=== PATIENT | male | born 1980 | race Caucasian/White ===

== ENCOUNTER 2016-06-11 14:13 | Emergency (ER) | payer BC ==
[~2016-06-11] VITALS: Ht 167.6 cm; Wt 91.6 kg
[~2016-06-11 14:13] MED LIST: CIPR500T PO; METR500T PO; ONDA4TAB7 PO; OXYC-323 PO
--- NOTE | 2016-06-11 15:27 | PHYS DOC ---
Past Medical History Past Medical History: Hypertension Past Surgical History: Other Additional Past Surgical Histo: VASECTOMY Alcohol Use: Occasionally Drug Use: None Adult General Chief Complaint Chief Complaint: ABDOMINAL PAIN HPI HPI Patient is a 35 year old male who complains of left lower quadrant abdominal pain that started yesterday at about noon. It has been constant and about the same since it began. Some nausea, no vomiting. Bowel movements have been regular , this morning it was somewhat "gummy". No blood in the stool. Patient states he had the same thing about 6 months ago but this time the pain is less became he came in earlier. When he was seen 6 months ago states he was diagnosed with diverticulitis and prescribed antibiotics and pain pills, it went away in a few days and he hasn't had any problems since until yesterday. His brother has a history of diverticulitis and had a segment of his colon removed. Review the patient's chart from previous visit shows that he did have a CAT scan with a diagnosis of diverticulitis. PCP Dr. Charlie Espinosa Review of Systems Review of Systems Constitutional: Denies fever or chills [] Eyes: Denies change in visual acuity, redness, or eye pain [] HENT: Denies nasal congestion or sore throat [] Respiratory: Denies cough or shortness of breath [] Cardiovascular: Denies chest pain GI: As in history of present illness : Denies dysuria or hematuria [] Musculoskeletal: Denies back pain or joint pain [] Integument: Denies rash or skin lesions [] Neurologic: Denies headache, focal weakness or sensory changes [] Allergies Allergies Allergies Coded Allergies Type Severity Reaction Last Updated Verified No Known Drug Allergies 01/04/16 No Physical Exam Physical Exam Constitutional: Well developed, well nourished, no acute distress, non-toxic appearance. Alert, mentating normally. HENT: Normocephalic, atraumatic, bilateral external ears normal, nose normal. [ ] Eyes: conjunctiva normal, no discharge. [] Neck: Normal range of motion, no stridor. [] Cardiovascular:Heart rate regular rhythm, no murmur [] Lungs & Thorax: Bilateral breath sounds clear to auscultation [] Abdomen: Bowel sounds normal, soft, nondistended, no masses, no pulsatile masses. Mild to moderate tenderness to palpation in the left lower quadrant, no rebound or guarding, no tenderness elsewhere in the abdomen. Skin: Warm, dry, no erythema, no rash. [] Extremities: No tenderness, no cyanosis, no clubbing, ROM intact, no edema. [] Neurologic: Alert and oriented X 3, normal motor function, normal sensory function, no focal deficits noted. [] Current Patient Data Vital Signs Vital Signs Date Time Temp Pulse Resp B/P Pulse Ox O2 Delivery O2 Flow Rate FiO2 06/11/16 16:54 70 17 122/79 100 Room Air 06/11/16 14:25 98.4 98.4 Lab Values Laboratory Tests Test 06/11/16 14:30 White Blood Count 11.0x10^3/uL (4.0-11.0) Red Blood Count 5.91x10^6/uL (4.30-5.70) H Hemoglobin 16.7g/dL (13.0-17.5) Hematocrit 50.3% (39.0-53.0) Mean Corpuscular Volume 85fL (79-100) Mean Corpuscular Hemoglobin 28pg (25-35) Mean Corpuscular Hemoglobin Concent 33g/dL (31-37) Red Cell Distribution Width 14.1% (11.5-14.5) Platelet Count 286x10^3/uL (140-400) Neutrophils (%) (Auto) 67% (31-73) Lymphocytes (%) (Auto) 21% (24-48) L Monocytes (%) (Auto) 9% (0-9) Eosinophils (%) (Auto) 3% (0-3) Basophils (%) (Auto) 0% (0-3) Neutrophils # (Auto) 7.3x10^3uL (1.8-7.7) Lymphocytes # (Auto) 2.3x10^3/uL (1.0-4.8) Monocytes # (Auto) 1.0x10^3/uL (0.0-1.1) Eosinophils # (Auto) 0.3x10^3/uL (0.0-0.7) Basophils # (Auto) 0.0x10^3/uL (0.0-0.2) Sodium Level 142mmol/L (136-145) Potassium Level 3.8mmol/L (3.5-5.1) Chloride Level 104mmol/L (98-107) Carbon Dioxide Level 30mmol/L (21-32) Anion Gap 8 (6-14) Blood Urea Nitrogen 15mg/dL (8-26) Creatinine 0.9mg/dL (0.7-1.3) Estimated GFR (Cockcroft-Gault) 95.0 BUN/Creatinine Ratio 17 (6-20) Glucose Level 88mg/dL (70-99) Calcium Level 9.1mg/dL (8.5-10.1) Total Bilirubin 0.5mg/dL (0.2-1.0) Aspartate Amino Transferase (AST) 19U/L (15-37) Alanine Aminotransferase (ALT) 45U/L (16-63) Alkaline Phosphatase 90U/L (46-116) Total Protein 7.9g/dL (6.4-8.2) Albumin 4.0g/dL (3.4-5.0) Albumin/Globulin Ratio 1.0 (1.0-1.7) Lipase 180U/L (73-393) Laboratory Tests 06/11/16 14:30 Laboratory Tests 06/11/16 14:30 EKG EKG [] Radiology/Procedures Radiology/Procedures [] Course & Med Decision Making Course & Med Decision Making Pertinent Labs and Imaging studies reviewed. (See chart for details) Healthy 35-year-old male without other medical problems who presents with left lower quadrant pain similar to a previous visit where he was diagnosed with diverticulitis. The patient's abdomen is benign. I prefer to not re-CT scan him due to radiation exposure since this presentation seems to be pretty clear-cut, he is agreeable to that. We will check some labs. Patient is comfortable and nontoxic. Labs are unremarkable. I believe he would be safe to go home with oral antibiotics and he is agreeable to that plan. I gave them return precautions to return for fever, feeling worse, vomiting. [] Dragon Disclaimer Dragon Disclaimer This electronic medical record was generated, in whole or in part, using a voice recognition dictation system. Departure Departure Impression: Primary Impression: Diverticulitis Disposition: HOME, SELF-CARE Condition: STABLE Referrals: NO PCP (PCP) Patient Instructions: Diverticulitis, [id number] Additional Instructions: Eat small amounts of bland foods for the next 2 or 3 days to avoid stressing your GI system. Drink plenty of fluids. No driving or working while taking the pain medication, it is an opiate. If you take more than 2 or 3 doses, you will probably need a laxative. Scripts Metronidazole 250 Mg Tablet1 Tab PO TID #30 TAB For diverticulitis Prov:ATUL EDWARDS MD 06/11/16 Ciprofloxacin Hcl (Cipro)500 Mg Tablet1 Tab PO BID #20 TAB For diverticulitis Prov:ATUL EDWARDS MD 06/11/16 Oxycodone/Apap 5-325 (Percocet 5-325 Mg Tablet)1 Each Tablet1-2 Tab PO Q4-6HRS # 14 TAB As needed for pain Diverticulitis Prov:ATUL EDWARDS MD 06/11/16 ATUL EDWARDS MD Jun 11, 2016 15:27
[2016-06-11 15:29] LABS: BASO % 0 % (0-3); EOS % 3 % (0-3); HEMATOCRIT 50.3 % (39.0-53.0); HEMOGLOBIN 16.7 g/dL (13.0-17.5); LYMPH # 2.3 x10^3/uL (1.0-4.8); LYMPH % 21 % (24-48); MEAN CORPUSCULAR HEMOGLOBIN 28 pg (25-35); MEAN CORPUSCULAR HGB CONC 33 g/dL (31-37); MEAN CORPUSCULAR VOLUME 85 fL (79-100); MONO % 9 % (0-9); NEUT % 67 % (31-73); PLATELET COUNT 286 x10^3/uL (140-400); RED BLOOD COUNT 5.91 x10^6/uL (4.30-5.70); RED CELL DISTRIBUTION WIDTH 14.1 % (11.5-14.5)
[2016-06-11 15:40] LABS: CALCIUM 9.1 mg/dL (8.5-10.1); CREATININE 0.9 mg/dL (0.7-1.3); POTASSIUM 3.8 mmol/L (3.5-5.1)
[2016-06-11 15:46] LABS: TOTAL BILIRUBIN 0.5 mg/dL (0.2-1.0); TOTAL PROTEIN 7.9 g/dL (6.4-8.2)
[2016-06-11 16:54] VITALS: BP 122/79
[2016-06-11] MEDS ORDERED: CIPR500T94 PO (16:57)
[2016-06-11] MEDS ORDERED: METR250T3 PO (16:57)
[2016-06-11] MEDS ORDERED: OXYC-323 PO (16:57)
== END 2016-06-11 17:03 | disposition home or self-care (01) ==
LOC: ER 14:13
DX: K57.92 Diverticulitis of intestine, part unspecified, without perforation or abscess without bleeding (principal); I10 Essential (primary) hypertension; Z98.52 Vasectomy status
CPT/HCPCS: 36415; 80053; 83690; 85027; 99284

== ENCOUNTER 2018-08-30 08:44 | Emergency (ER) | payer BC, OTHER ==
[~2018-08-30] VITALS: Ht 167.6 cm; Wt 90.7 kg
[~2018-08-30 08:44] MED LIST changes: +CIPR500T94 PO; +METR-111 PO; -OXYC-323 PO; +OXYC1TAB15 PO
[2018-08-30 08:52] VITALS: BP 156/96
--- NOTE | 2018-08-30 08:54 | PHYS DOC ---
Past Medical History Past Medical History: Hypertension Past Surgical History: Other Additional Past Surgical Histo: VASECTOMY Alcohol Use: Occasionally Drug Use: None Adult General Chief Complaint Chief Complaint: Neck Pain HPI HPI Patient is a 37 year old [f__sex] who presents with [] Review of Systems Review of Systems Constitutional: Denies fever or chills [] Eyes: Denies change in visual acuity, redness, or eye pain [] HENT: Denies nasal congestion or sore throat [] Respiratory: Denies cough or shortness of breath [] Cardiovascular: No additional information not addressed in HPI [] GI: Denies abdominal pain, nausea, vomiting, bloody stools or diarrhea [] : Denies dysuria or hematuria [] Musculoskeletal: Denies back pain or joint pain [] Integument: Denies rash or skin lesions [] Neurologic: Denies headache, focal weakness or sensory changes [] Endocrine: Denies polyuria or polydipsia [] All other systems were reviewed and found to be within normal limits, except as documented in this note. Allergies Allergies Allergies Coded Allergies Type Severity Reaction Last Updated Verified No Known Drug Allergies 01/04/16 No Physical Exam Physical Exam Constitutional: Well developed, well nourished, no acute distress, non-toxic appearance. [] HENT: Normocephalic, atraumatic, bilateral external ears normal, oropharynx moist, no oral exudates, nose normal. [] Eyes: PERRLA, EOMI, conjunctiva normal, no discharge. [] Neck: Normal range of motion, no tenderness, supple, no stridor. [] Cardiovascular:Heart rate regular rhythm, no murmur [] Lungs & Thorax: Bilateral breath sounds clear to auscultation [] Abdomen: Bowel sounds normal, soft, no tenderness, no masses, no pulsatile masses. [] Skin: Warm, dry, no erythema, no rash. [] Back: No tenderness, no CVA tenderness. [] Extremities: No tenderness, no cyanosis, no clubbing, ROM intact, no edema. [] Neurologic: Alert and oriented X 3, normal motor function, normal sensory function, no focal deficits noted. [] Psychologic: Affect normal, judgement normal, mood normal. [] EKG EKG [] Radiology/Procedures Radiology/Procedures [] Course & Med Decision Making Course & Med Decision Making Pertinent Labs and Imaging studies reviewed. (See chart for details) [] Dragon Disclaimer Dragon Disclaimer This electronic medical record was generated, in whole or in part, using a voice recognition dictation system. Departure Departure Referrals: ANDRAE RODRIGUEZ MD (PCP) SCARLETT PIERCE MD August 30, 2018 08:54
[2018-08-30] MEDS ORDERED: DICL50TA4 PO (09:04)
[2018-08-30] MEDS ORDERED: HYDR-3164 PO (09:04)
[2018-08-30] MEDS ORDERED: METH4TAB2 PO (09:04)
[2018-08-30] MEDS ORDERED: CYCL10TA2 PO (09:04)
--- NOTE | 2018-08-30 09:04 | PHYS DOC ---
Past Medical History Past Medical History: Hypertension Past Surgical History: Other Additional Past Surgical Histo: VASECTOMY Alcohol Use: Occasionally Drug Use: None Adult General Chief Complaint Chief Complaint: Neck Pain HPI HPI Patient is a 37 year old male with history of hypertension who presents to the ED today complaining of a sharp constant 5 out of 10 right lateral neck pain that began this morning when he woke up. Patient denies any known injury. Patient states the pain is worse on rotating his neck to the right side. He believes he slept wrong. Patient denies anything specifically relieving the pain. Patient denies any chest pain or shortness of breath. Review of Systems Review of Systems Constitutional: Denies fever or chills [] Eyes: Denies change in visual acuity, redness, or eye pain [] HENT: Denies nasal congestion or sore throat [] Respiratory: Denies cough or shortness of breath [] Cardiovascular: No additional information not addressed in HPI [] GI: Denies abdominal pain, nausea, vomiting, bloody stools or diarrhea [] : Denies dysuria or hematuria [] Musculoskeletal: Reports right lateral neck pain Integument: Denies rash or skin lesions [] Neurologic: Denies headache, focal weakness or sensory changes [] All other systems were reviewed and found to be within normal limits, except as documented in this note. Allergies Allergies Allergies Coded Allergies Type Severity Reaction Last Updated Verified No Known Drug Allergies 01/04/16 No Physical Exam Physical Exam Constitutional: Well developed, well nourished, no acute distress, non-toxic appearance. [] HENT: Normocephalic, atraumatic, bilateral external ears normal, oropharynx moist, no oral exudates, nose normal. [] Eyes: PERRLA, EOMI, conjunctiva normal, no discharge. [] Neck: Diffuse paraspinal muscle tenderness the right lateral cervical spine, no midline cervical spine tenderness, limited range of motion to the right lateral cervical spine due to pain, supple, no stridor. [] Cardiovascular:Heart rate regular rhythm, no murmur [] Lungs & Thorax: Bilateral breath sounds clear to auscultation [] Abdomen: Bowel sounds normal, soft, no tenderness, no masses, no pulsatile masses. [] Skin: Warm, dry, no erythema, no rash. [] Back: No tenderness, no CVA tenderness. [] Extremities: No tenderness, no cyanosis, no clubbing, ROM intact, no edema. [] Neurologic: Alert and oriented X 3, normal motor function, normal sensory function, no focal deficits noted. [] Psychologic: Affect normal, judgement normal, mood normal. [] EKG EKG [] Radiology/Procedures Radiology/Procedures [] Course & Med Decision Making Course & Med Decision Making Pertinent Labs and Imaging studies reviewed. (See chart for details) This is a 37-year-old male patient presented to the ED today with right lateral neck pain that began this morning when he woke up, pain consistent with torticollis. No known injury. Recommended heating pad to the neck. Patient discharged to home with medications to help his symptoms. Follow-up with PCP in one to 2 weeks. [place] Disclaimer Terion Disclaimer This electronic medical record was generated, in whole or in part, using a voice recognition dictation system. Departure Departure Impression: Primary Impression: Torticollis, acute Disposition: 01 HOME, SELF-CARE Condition: STABLE Referrals: ANDRAE RODRIGUEZ MD (PCP) follow up in 1 week Patient Instructions: Torticollis, Acute Additional Instructions: You were evaluated in the emergency room with neck pain consistent of torticollis. We gave you medications, take them as prescribed. Apply heat as we discussed to your neck. Follow-up with your doctor in 1-2 weeks. Ensure you take by mouth blood pressure medication as soon as you get home. Scripts Diclofenac Sodium (DICLOFENAC SODIUM) 50 Mg Tablet. 1 TAB PO BID, #20 TAB 1 Refill Prov: ERWIN WINCHESTER APRN 08/30/18 Hydrocodone/Apap 5-325 (NORCO 5-325 TABLET) 1 Each Tablet 1 TAB PO Q6HRS, #12 TAB Prov: ERWIN WINCHESTER APRN 08/30/18 Cyclobenzaprine Hcl (CYCLOBENZAPRINE HCL) 10 Mg Tablet 1 TAB PO TID, #30 TAB Prov: ERWIN WINCHESTER APRN 08/30/18 Methylprednisolone (MEDROL) 4 Mg Tab.ds.pk 1 PKG PO UD, #1 PKG Prov: ERWIN WINCHESTER APRN 08/30/18 ERWIN WINCHESTER APRN August 30, 2018 09:04
== END 2018-08-30 09:13 | disposition home or self-care (01) ==
LOC: ER 08:44
DX: M43.6 Torticollis (principal); I10 Essential (primary) hypertension; Z98.52 Vasectomy status
CPT/HCPCS: 99283